=== PATIENT | male | born 1950 | race Two or more races ===

== ENCOUNTER 2021-03-22 10:02 | Inpatient (IN) | payer BC, OTHER ==
[~2021-03-22] VITALS: Ht 157.5 cm; Wt 63.0 kg
[~2021-03-22 10:02] MED LIST: AMLO-213 PO; ASPI-1169 PO; CARV6.252 PO; CLON0.1T PO; DICY10CA59 PO; DOCU-141 PO; FERR1TAB44 PO; FOLI0.8T2 PO; FURO80TA3 PO; GLIP2.5T3 PO; MECL-159 PO; NITR0.4T SL; SIMV-46 PO; SODI650T PO
--- NOTE | 2021-03-22 10:11 | NUR ---
TO ER BED 4, BIBRA 60 FROM HOME C/O GLF L WRIST PAIN AND POSSBILE SYNCOPAL EPISODE, FAMILY FOUND LEANING ON THE DOOR, BS 355 SHAREPOINT ARCHITECT, AAX3, BS 217 UPON ARRIVAL, CONNECTED TO MONITOR, PROVIDED WARM BLANKET, KEPT COMFORTABLE, AWAITING MD ORDERS
[2021-03-22] MEDS ORDERED: INSU100V SQ (10:15)
[2021-03-22] MEDS ORDERED: BRIM5DRO3 EACHEYE (10:15)
[2021-03-22] MEDS ORDERED: LISI-768 PO (10:15)
[2021-03-22] MEDS ORDERED: GLIP10TA21 PO (10:15)
[2021-03-22] MEDS ORDERED: MYCO250C8 PO (10:15)
[2021-03-22] MEDS ORDERED: ATOR10TA PO (10:15)
[2021-03-22] MEDS ORDERED: DONE5TAB34 PO (10:15)
[2021-03-22] MEDS ORDERED: METO25TA20 PO (10:15)
[2021-03-22] MEDS ORDERED: LINA5TAB PO (10:15)
[2021-03-22] MEDS ORDERED: CILO100T PO (10:15)
[2021-03-22] MEDS ORDERED: TACR0.5C4 PO (10:15)
[2021-03-22] MEDS ORDERED: INSU100V7 SQ (10:15)
--- NOTE | 2021-03-22 10:17 | NUR ---
PT UNABLE TO PROVIDE URINE AT THIS TIME, PT GIVEN URINAL AT BEDSIDE.
--- NOTE | 2021-03-22 10:20 | NUR ---
COVID SWAB DONE AND SENT TO LAB
--- NOTE | 2021-03-22 10:21 | NUR ---
UNABLE TO PROVIDE URINE AT THIS TIME
[2021-03-22] MEDS ORDERED: IV NS 0.9% 1,000 ML BAG IV ONE ×2 (10:30→12:00)
--- NOTE | 2021-03-22 10:32 | NUR ---
PT TAKEN TO CT VIA AMADEO
--- NOTE | 2021-03-22 10:32 | NUR ---
MOVE SHEET SUBMITTED AND CALLED FOR TELE BED.
[2021-03-22] MEDS ORDERED: DORZ10DR10 EACHEYE (10:42)
--- NOTE | 2021-03-22 10:42 | NUR ---
Magdalena araya in [facility] - 03/22/21 at 1042 by GALO BED GIVEN 114-1
[2021-03-22 11:07] LABS: BASOPHILS % (AUTO) 0.1 % (0.0-2.0); HEMATOCRIT 38 % (39-51); LYMPHOCYTES # (AUTO) 0.4 K/uL (0.8-4.8); MEAN CORPUSCULAR HGB CONC 32 g/dl (31.0-36.0); MEAN CORPUSCULAR VOLUME 85 fL (80-96); MONOCYTES # (AUTO) 1.2 K/uL (0.1-1.30); MONOCYTES % (AUTO) 7.3 % (2.0-12.0); NEUTROPHILS # (AUTO) 15.6 K/uL (1.8-8.9); NEUTROPHILS % (AUTO) 90.6 % (43.0-81.0); PLATELET COUNT (AUTO) 224 K/uL (150-450); RED BLOOD CELL COUNT(AUTO) 4.43 MIL/uL (4.5-6.0); WHITE BLOOD COUNT (AUTO) 17.2 K/uL (4.3-11.0)
[2021-03-22 11:28] LABS: CARBON DIOXIDE 17 mmol/L (21-32); CHLORIDE 103 mmol/L (98-107); CREATININE 1.2 mg/dL (0.6-1.3); GLUCOSE 239 mg/dL (74-106); POTASSIUM 4.1 mmol/L (3.5-5.1); SODIUM SERUM 136 mmol/L (136-145); UREA NITROGEN, BLOOD 27 mg/dL (7-18)
--- NOTE | 2021-03-22 11:41 | NUR ---
PT STILL UNABLE TO PROVIDE URINE AT THIS TIME
[2021-03-22 11:44] LABS: THYROID STIMULATING HORMONE 2.245 uIU/mL (0.358-3.74)
[2021-03-22] MEDS ORDERED: PIPERACILLIN /TAZOBACTAM 3.375 G in IV D5W 50 ML IV ONE (12:00)
[2021-03-22] MEDS ORDERED: Z GUARD REMEDY 4 OZ OINT TP PRN (12:30)
[2021-03-22] MEDS ORDERED: ONDANSETRON HCL/PF 4 MG/2 ML VIAL IVP PRN (12:30)
--- NOTE | 2021-03-22 12:49 | NUR ---
PT PROVIDED WITH WATER, STILL UNABLE TO PROVIDE URINE AT THIS TIME
[2021-03-22] MEDS ORDERED: DEXTROSE 50%-WATER 50 ML DISP.SYRIN IV PRN ×2 (13:00→15:30)
--- NOTE | 2021-03-22 13:04 | NUR ---
GOT BED 312-1
--- NOTE | 2021-03-22 13:35 | NUR ---
CALLED TO GIVE REPORT, NURSE IS ON BREAK
--- NOTE | 2021-03-22 13:48 | NUR ---
REPORT GIVEN TO SUSHILA
--- NOTE | 2021-03-22 14:59 | NUR ---
PT TRANSFERRED TO 3W WITH ACLS PROTOCOLS IN PLACE
--- NOTE | 2021-03-22 15:05 | NUR ---
DISTRICT HOME ECONOMICS AGENT ADMITTING NOTES RECIEVED PATIENT FORM E.R VIA AMADEO, ACCOMPANIED BY QUINTIN RIVERA. PATIENT IS AWAKE A&O X 3 WITH PERIODS OF FORGETFULNESS NOTED. VITAL SIGNS TAKEN AND RECORDED. IV ACCESS ON RAC G#18 PATENT AND FLUSHES WELL. HOOKED TO TELE MONITOR READING SHOWING ST HR AT 108. IN NO ACUTE DISTRESS NOTED. ON ROOM AIR TOLERATING WELL. NO S/SX OF RESPIRATORY DISTRESS NOTED. SKIN ISSUES IDENTIFIED. PHOTOS TAKEN AND FILED TO CHART. ORIENTED PATIENT TO THE UNIT AND STAFF, PATIENT NEEDS REINFORCEMENT DUE TO EPISODES OF FORGETFULNESS. SAFETY PRECAUTIONS IN PLACE: BED ON LOWEST LOCKED POSITION, SIDE RAILS UP X 2, CALL LIGHT WITHIN EASY REACH. WILL CONTINUE TO MONITOR ACCORDINGLY.
[2021-03-22 15:10] VITALS: BP 149/81
[2021-03-22 15:30] VITALS: BP 149/81
[2021-03-22] MEDS ORDERED: INSULIN REGULAR, HUMAN 100 UNIT/ML 3 ML VIAL SQ PRN (15:30)
[2021-03-22] MEDS ORDERED: *INSULIN REGULAR(HUMULIN R)HUM 100 UNIT/ML VIAL SQ PRN (15:30)
[2021-03-22] MEDS ORDERED: VANCOMYCIN 1.25 GM in IV D5W 250 ML IV ONE (16:00)
[2021-03-22] MEDS: MYCOPHENOLATE MOFETIL 250 MG CAPSULE PO SCH (16:58)
[2021-03-22] MEDS: TACROLIMUS ANHYDROUS 0.5 MG CAPSULE PO SCH (16:58)
[2021-03-22] MEDS: METOPROLOL TARTRATE 25 MG TABLET PO SCH (16:59)
[2021-03-22] MEDS: BLOOD SUGAR DIAGNOSTIC 1 EACH STRIP IN SCH ×2 (17:16→22:30)
[2021-03-22] MEDS: INSULIN LISPRO/ASPART 100 UNIT/ML CARTRIDGE SQ SCH ×2 (17:19→22:00)
[2021-03-22] MEDS: INSULIN REGULAR, HUMAN 100 UNIT/ML 3 ML VIAL SQ PRN (17:20)
[2021-03-22] MEDS ORDERED: BLOOD SUGAR DIAGNOSTIC 1 EACH STRIP IN SCH (17:30)
[2021-03-22] MEDS: DORZOLAMIDE OPTH 2% 10 ML BOTTLE EACHEYE SCH (17:59)
[2021-03-22] MEDS ORDERED: PIPERACILLIN /TAZOBACTAM 3.375 G in IV D5W 50 ML IV SCH (18:00)
[2021-03-22] MEDS: ACETAMINOPHEN 325 MG TABLET PO PRN (18:20)
--- NOTE | 2021-03-22 18:44 | NUR ---
RN NOTES ANSWERING TO BED ALARM, FOUND PATIENT ON HIS KNEES ON HIS BED SIDE ASSISTED BACK TO BAED, ASSESS PATIENT, NO INJURY NOTED. MD NOTIFIED. VITALS SIGNS WITHIN NORMAL LIMITS. REORIENTED PATIENT, REINFORCED TO CALL FOR ASSISTANCE WHEN NEEDED. WILL CONTINUE TO MONITOR.
--- NOTE | 2021-03-22 18:58 | NUR ---
SEQUINS SLINGER CLOSING NOTES PATIENT IN BED AWAKE A&O X 2 WITH PERIODS OF CONFUSION NOTED. IV ACCESS ON RFA G#20 PATENT AND FLUSHES WELL. ON TELE MONITOR READING SHOWING ST HR AT 118. IN NO ACUTE DISTRESS NOTED. ON ROOM AIR TOLERATING WELL. NO S/SX OF RESPIRATORY DISTRESS NOTED. SAFETY PRECAUTIONS IN PLACE: BED ON LOWEST LOCKED POSITION, SIDE RAILS UP X 2, CALL LIGHT WITHIN EASY REACH. ALL NEEDS ATTENDED AND MET, DUE MEDS GIVEN ORDERED. WILL ENDORSE TO ONCOMING SHIFT FOR RIVERA.
--- NOTE | 2021-03-22 19:45 | NUR ---
FUR GRADER NOTES SR-82 ON TELE MONITOR,ON BED A/O X2,CONFUSED,SALINE LOCK RIGHT AC INTACT AND PATENT,IV ABX INFUSING WELL VIA IV PUMP, NOTED RIGHT WEST SKIN TEAR AND RIGHT FOREARM,OPEN TO AIR.NEW SALINE LOCK PLACE ON LEFT FORE,WITH MULTIPLE IV ABX.FALL PRECAUTION OBSERVED,BED ON LOWEST POSITION AND LOCK,BED ALARM,CALL LIGHT IN REACH,NEEDS ANTICIPATED.
[2021-03-22 20:00] VITALS: BP 108/46
--- NOTE | 2021-03-22 21:00 | NUR ---
TRAY DELIVERY AIDE NOTES SEEN BY RAÚL DENNIS FOR ID CONSULT,VANCOMYCIN AND ZOSYN IV WAS CHANGED TO CEFEPIME AND VIBRAMYCIN IV.
[2021-03-22] MEDS: DONEPEZIL 5 MG TABLET PO SCH (21:43)
[2021-03-22] MEDS: HEPARIN SODIUM, PORCINE 5000 UNITS/1 ML VIAL SQ SCH (21:45)
[2021-03-22] MEDS: CILOSTAZOL 100 MG TABLET PO SCH (21:49)
[2021-03-22] MEDS: ATORVASTATIN 10 MG TABLET PO SCH (21:51)
[2021-03-22] MEDS: INSULIN GLARGINE, 100 UNIT/ML CARTRIDGE SQ SCH (22:00)
--- NOTE | 2021-03-22 22:00 | NUR ---
CLIENT RENEWAL SPECIALIST NOTES ACCU-CHECK BLOOD SUGAR CHECK 81,NO INSULIN COVERAGE,INSULIN LISPRO AND LANTUS 21 UNITS HELD FOR LOW BLOOD SUGAR LEVEL
[2021-03-22] MEDS ORDERED: DOXYCYCLINE 100 MG VIAL ONE (22:15)
[2021-03-22] MEDS: DOXYCYCLINE 100 MG in IV D5W 100 ML IV SCH (22:44)
[2021-03-23] VITALS: BP 139/61
[2021-03-23 00:52] LABS: ALANINE AMINOTRANSFERASE 71 U/L (12-78); ALBUMIN 2.3 g/dL (3.4-5.0); ALKALINE PHOSPHATASE 230 U/L (46-116); ASPARTATE AMINOTRANSFERASE 175 U/L (15-37); BILIRUBIN,DIRECT 0.4 mg/dL (0.0-0.2); BILIRUBIN,DIRECT 0.5 mg/dL (0.0-0.2); BILIRUBIN,TOTAL 0.8 mg/dL (0.2-1.0); TOTAL PROTEIN, SERUM 6.1 g/dL (6.4-8.2)
[2021-03-23 04:00] VITALS: BP 106/47
--- NOTE | 2021-03-23 05:15 | NUR ---
OB/GYN NOTES ACCU-CHECK BLOOD SUGAR CHECK 109,NO INSULIN COVERAGE.
[2021-03-23] MEDS: BLOOD SUGAR DIAGNOSTIC 1 EACH STRIP IN SCH ×4 (05:59→22:15)
--- NOTE | 2021-03-23 06:34 | NUR ---
LOG HOOKER NOTES ON BED A/O X-1-2,CONFUSED,REFUSED TO WEAR HOSPITAL GOWN,CALM AND QUIET ON BED THRU OUT SHIFT.WILL CONTINUE WITH PLAN OF CARE,NO DISTRESS.
[2021-03-23 07:16] LABS: BASOPHILS % (AUTO) 0.1 % (0.0-2.0); EOSINOPHILS % (AUTO) 0.1 % (0.0-6.0); HEMATOCRIT 38 % (39-51); HEMOGLOBIN 12.2 g/dL (13.5-17.5); LYMPHOCYTES # (AUTO) 0.4 K/uL (0.8-4.8); LYMPHOCYTES % (AUTO) 2.5 % (20.0-44.0); MEAN CORPUSCULAR HGB CONC 32 g/dl (31.0-36.0); MEAN CORPUSCULAR VOLUME 84 fL (80-96); MONOCYTES # (AUTO) 1.3 K/uL (0.1-1.30); MONOCYTES % (AUTO) 7.3 % (2.0-12.0); NEUTROPHILS # (AUTO) 15.7 K/uL (1.8-8.9); PLATELET COUNT (AUTO) 248 K/uL (150-450); WHITE BLOOD COUNT (AUTO) 17.4 K/uL (4.3-11.0)
[2021-03-23 07:36] LABS: CALCIUM, SERUM 8.6 mg/dL (8.5-10.1); CREATININE 0.8 mg/dL (0.6-1.3); MAGNESIUM 2.2 mg/dL (1.8-2.4); PHOSPHORUS 3.3 mg/dL (2.5-4.9)
[2021-03-23 07:51] LABS: THYROID STIMULATING HORMONE 0.769 uIU/mL (0.358-3.74)
[2021-03-23 08:00] VITALS: BP 111/50
[2021-03-23] MEDS: PANTOPRAZOLE 40 MG TABLET.DR PO SCH (08:32)
[2021-03-23] MEDS: DORZOLAMIDE OPTH 2% 10 ML BOTTLE EACHEYE SCH ×2 (08:35→17:46)
[2021-03-23] MEDS: BRIMONIDINE TARTRATE OPHT SOLN 5 ML BOTTLE OP SCH ×3 (08:35→17:46)
[2021-03-23] MEDS: LINAGLIPTIN 5 MG TABLET PO SCH (08:36)
[2021-03-23] MEDS: glipiZIDE XL 10 MG TAB.OSM.24 PO SCH (08:36)
[2021-03-23] MEDS: ASPIRIN 81 MG TAB.CHEW PO SCH (08:36)
[2021-03-23] MEDS: MYCOPHENOLATE MOFETIL 250 MG CAPSULE PO SCH ×2 (08:36→17:44)
[2021-03-23] MEDS: CILOSTAZOL 100 MG TABLET PO SCH ×2 (08:36→20:10)
[2021-03-23] MEDS: TACROLIMUS ANHYDROUS 0.5 MG CAPSULE PO SCH ×2 (08:37→17:45)
[2021-03-23] MEDS: HEPARIN SODIUM, PORCINE 5000 UNITS/1 ML VIAL SQ SCH (08:38)
[2021-03-23] MEDS: INSULIN LISPRO/ASPART 100 UNIT/ML CARTRIDGE SQ SCH ×4 (08:39→22:00)
[2021-03-23] MEDS: METOPROLOL TARTRATE 25 MG TABLET PO SCH ×2 (08:40→17:46)
[2021-03-23] MEDS: LISINOPRIL (5MG) 5 MG TABLET PO SCH (08:40)
[2021-03-23] MEDS: AMLODIPINE BESYLATE 10 MG TABLET PO SCH (08:40)
[2021-03-23] MEDS ORDERED: HEPARIN SODIUM, PORCINE 5000 UNITS/1 ML VIAL IV SCH (09:00)
[2021-03-23] MEDS: DOXYCYCLINE 100 MG in IV D5W 100 ML IV SCH ×2 (10:00→22:14)
[2021-03-23] MEDS: CEFEPIME 2 GM in IV D5W 100 ML IV SCH ×2 (10:01→20:10)
--- NOTE | 2021-03-23 11:44 | NUR ---
TELE/RN NOTES- NPO STATUS BS ID [id number] BUT WILL NOT GIVE INSULIN COVERAGE DUE TO NPO STATUS. WILL MONITOR.
[2021-03-23 12:00] VITALS: BP 100/50
[2021-03-23] MEDS: ACETAMINOPHEN 325 MG TABLET PO PRN ×3 (15:20→21:20)
[2021-03-23 16:00] VITALS: BP 126/67
[2021-03-23] MEDS ORDERED: VANCOMYCIN 1 GM in IV D5W 250 ML IV SCH (16:00)
[2021-03-23] MEDS ORDERED: IV NS 0.9% 250 ML IV ONE (16:21)
[2021-03-23] MEDS ORDERED: IOHEXOL-300 100 ML VIAL IV ONE (16:21)
[2021-03-23] MEDS: HEPARIN INFUSION/D5W 500 ML IV PRN (17:13)
--- NOTE | 2021-03-23 17:30 | NUR ---
HEPARIN DRIP STARTED HEPARIN DRIP STARTED AT 1100 UNITS/22ML/HR. WILL MONITOR.
--- NOTE | 2021-03-23 19:20 | NUR ---
TELE/RN OPENING NOTE PATIENT CURRENTLY RESTING IN BED. AWAKE, ALERT AND ORIENTED X 2. PRIMARILY ITALIAN SPEAKING. ABLE TO MAKE NEEDS KNOWN. DENIES PAIN AT THIS TIME. CONTINUES ON O2 3L VIA NC WITH NO S/SX OF RESPIRATORY DISTRESS NOTED. IV ACCESS TO RIGHT FOREARM #20G AND LEFT FOREARM #22G BOTH INTACT AND PATENT. CONTINUES ON IV HEPARIN AT 1100UNITS/HR. NO S/SX OF BLEEDING NOTED. CONTINUES ON NPO STATUS. CALL LIGHT WITHIN REACH. ASPIRATION, FALL AND SAFETY PRECAUTIONS MAINTAINED. WILL CONTINUE TO MONITOR.
[2021-03-23 20:00] VITALS: BP 121/71
--- NOTE | 2021-03-23 20:16 | NUR ---
TELE/RN NOTE SPOKE WITH RADIOLOGY REGARDING WHETHER PATIENT WOULD HAVE CT ABDOMEN DONE TONIGHT. PER RADIOLOGIST CT WITH CONTRAST OF ABDOMEN WILL BE DONE IN THE MORNING. PATIENT TO BE NPO AFTER MIDNIGHT. ADMINISTERED ROUTINE PO MEDS AT THIS TIME.
--- NOTE | 2021-03-23 20:45 | NUR ---
TELE/RN NOTE PATIENT DOWN TO RADIOLOGY FOR CT WITH CONTRAST OF ABDOMEN. CONTINUED ON HEPARIN DRIP WHILE AT RADIOLOGY.
--- NOTE | 2021-03-23 21:03 | NUR ---
TELE/RN NOTE PATIENT RETURNED FROM RADIOLOGY. RESTING COMFORTABLY IN BED.
[2021-03-23] MEDS: ATORVASTATIN 10 MG TABLET PO SCH (22:00)
[2021-03-23] MEDS: INSULIN GLARGINE, 100 UNIT/ML CARTRIDGE SQ SCH (22:00)
[2021-03-23] MEDS: DONEPEZIL 5 MG TABLET PO SCH (22:00)
[2021-03-24] VITALS: BP 132/65
--- NOTE | 2021-03-24 00:13 | NUR ---
TELE/RN NOTE PATIENTS PTT IS 80.5. HEPARIN DRIP ADJUSTED PER PROTOCOL. NEXT PTT LAB DRAW AT 0600.
[2021-03-24] MEDS: HEPARIN INFUSION/D5W 500 ML IV PRN ×2 (00:18→21:14)
[2021-03-24 04:00] VITALS: BP 131/69
--- NOTE | 2021-03-24 06:10 | NUR ---
TELE/RN CLOSING NOTE PATIENT CURRENTLY RESTING IN BED. AWAKE, ALERT AND ORIENTED X 2. PRIMARILY CHILEAN SPEAKING. ABLE TO MAKE NEEDS KNOWN. DENIES PAIN AT THIS TIME. CONTINUES ON O2 3L VIA NC WITH NO S/SX OF RESPIRATORY DISTRESS NOTED. IV ACCESS TO RIGHT FOREARM #20G AND LEFT FOREARM #22G BOTH INTACT AND PATENT. HEPARIN DRIP STOPPED AT 0700 FOR BIOPSY TODAY. NO S/SX OF BLEEDING NOTED. CONTINUES ON NPO STATUS. CALL LIGHT WITHIN REACH. ASPIRATION, FALL AND SAFETY PRECAUTIONS MAINTAINED. WILL ENDORSE PLAN OF CARE TO ONCOMING SHIFT.
[2021-03-24] MEDS: BLOOD SUGAR DIAGNOSTIC 1 EACH STRIP IN SCH ×4 (06:30→21:25)
[2021-03-24 06:48] LABS: BASOPHILS % (AUTO) 0.1 % (0.0-2.0); EOSINOPHILS % (AUTO) 0.2 % (0.0-6.0); HEMATOCRIT 36 % (39-51); HEMOGLOBIN 11.8 g/dL (13.5-17.5); LYMPHOCYTES # (AUTO) 0.8 K/uL (0.8-4.8); LYMPHOCYTES % (AUTO) 4.4 % (20.0-44.0); MEAN CORPUSCULAR HGB CONC 33 g/dl (31.0-36.0); MEAN CORPUSCULAR VOLUME 83 fL (80-96); MONOCYTES # (AUTO) 1.5 K/uL (0.1-1.30); MONOCYTES % (AUTO) 8.7 % (2.0-12.0); NEUTROPHILS # (AUTO) 15.2 K/uL (1.8-8.9); NEUTROPHILS % (AUTO) 86.6 % (43.0-81.0); PLATELET COUNT (AUTO) 295 K/uL (150-450); RED BLOOD CELL COUNT(AUTO) 4.34 MIL/uL (4.5-6.0); WHITE BLOOD COUNT (AUTO) 17.6 K/uL (4.3-11.0)
[2021-03-24 07:07] LABS: CALCIUM, SERUM 8.6 mg/dL (8.5-10.1); MAGNESIUM 2.1 mg/dL (1.8-2.4); PHOSPHORUS 3.3 mg/dL (2.5-4.9); POTASSIUM 3.5 mmol/L (3.5-5.1)
[2021-03-24 07:23] LABS: IRON, SERUM 33 ug/dl (50-175); TOTAL IRON BINDING CAPACITY 120 ug/dl (250-450)
[2021-03-24] MEDS: INSULIN LISPRO/ASPART 100 UNIT/ML CARTRIDGE SQ SCH ×4 (07:30→21:32)
[2021-03-24] MEDS: PANTOPRAZOLE 40 MG TABLET.DR PO SCH (07:30)
--- NOTE | 2021-03-24 07:30 | NUR ---
TELE/RN OPENING NOTE RECEIVED PATIENT CURRENTLY RESTING IN BED. AWAKE, ALERT AND ORIENTED X 2. PRIMARILY HUNGARIAN SPEAKING. ABLE TO MAKE NEEDS KNOWN. DENIES PAIN AT THIS TIME. CONTINUES ON O2 3L VIA NC WITH NO S/SX OF RESPIRATORY DISTRESS NOTED. IV ACCESS TO RIGHT FOREARM #20G AND LEFT FOREARM #22G BOTH INTACT AND PATENT. HEPARIN DRIP STOPPED AT 0700 FOR BIOPSY TODAY. NO S/SX OF BLEEDING NOTED. ON NPO STATUS. SAFETY MEASURES IN PLACED. CALL LIGHT WITHIN REACH. BED ON LOWEST LOCKED POSITION, SIDE RAILS UP X2. WILL CONTINUE TO MONITOR.
--- NOTE | 2021-03-24 07:30 | NUR ---
MS RN OPENING NOTES RECEIVED PATIENT ON SITTING ON CHAIR AWAKE AND A/O X4. ON ROOM AIR TOLERATING WELL. NO SOB NOTED. NOT IN DISTRESS. WITH NO COMPLAINTS OF PAIN OR DISCOMFORT AT THIS TIME. WITH NO IV ACCESS, PATIENT REFUSED FOR IV INSERTION. SAFETY MEASURES IN PLACED. CALL LIGHT WITHIN REACH. BED ON LOWEST LOCKED POSITION, SIDE RAILS UP X2. WILL CONTINUE TO MONITOR. Addendum: 03/24/21 at 1606 by BENJIE ZUNIGA RN DOCUMENTED ON WRONG PATIENT.
[2021-03-24 07:51] LABS: FERRITIN 1661 ng/mL (8-388); THYROID STIMULATING HORMONE 1.188 uIU/mL (0.358-3.74)
[2021-03-24 07:53] LABS: PROSTATE SPECIFIC ANTIGEN SCR < 0.13 ng/mL (0.00-4.00)
[2021-03-24 08:00] VITALS: BP 136/67
[2021-03-24] MEDS: LISINOPRIL (5MG) 5 MG TABLET PO SCH (09:00)
[2021-03-24] MEDS: ASPIRIN 81 MG TAB.CHEW PO SCH (09:00)
[2021-03-24] MEDS: AMLODIPINE BESYLATE 10 MG TABLET PO SCH (09:00)
[2021-03-24] MEDS: glipiZIDE XL 10 MG TAB.OSM.24 PO SCH (09:00)
[2021-03-24] MEDS: LINAGLIPTIN 5 MG TABLET PO SCH (09:00)
[2021-03-24] MEDS: TACROLIMUS ANHYDROUS 0.5 MG CAPSULE PO SCH ×2 (09:00→16:28)
[2021-03-24] MEDS: METOPROLOL TARTRATE 25 MG TABLET PO SCH ×2 (09:00→16:29)
[2021-03-24] MEDS: CILOSTAZOL 100 MG TABLET PO SCH ×2 (09:00→21:23)
[2021-03-24] MEDS: DOXYCYCLINE 100 MG in IV D5W 100 ML IV SCH ×2 (09:09→20:55)
[2021-03-24] MEDS: DORZOLAMIDE OPTH 2% 10 ML BOTTLE EACHEYE SCH ×2 (09:19→17:29)
[2021-03-24] MEDS: BRIMONIDINE TARTRATE OPHT SOLN 5 ML BOTTLE OP SCH ×3 (09:19→17:29)
[2021-03-24] MEDS: CEFEPIME 2 GM in IV D5W 100 ML IV SCH ×2 (11:38→20:03)
--- NOTE | 2021-03-24 15:00 | NUR ---
RN NOTES CALLED RADIOLOGY, SPOKE WITH JACOB TO ASK FOR HEPARIN DRIP PROTOCOL AND BEEN TOLD TO CALL HOSPITALIST IF HEPARIN DRIP WILL BE RESUMED.
--- NOTE | 2021-03-24 15:05 | NUR ---
MS RIVERAREVENUE INTEGRITY ANALYST NOTES PATIENT WAS SEEN BY DR. MARTINEZ AND ORDERED PATIENT FOR DISCHARGE TO HOME WITH HOME HEALTH. DISCHARGE INSTRUCTIONS AND EDUCATION PROVIDED TO THE PATIENT AND EXPLAINED MEDICATIONS AND PRESCRIPTIONS. PATIENT VERBALIZED UNDERSTANDING. DISCHARGE FORM AND BELONGINGS LIST FORM SIGNED BY PATIENT. PATIENT'S BELONGINGS ARE ACCOUNTED FOR. NAME WRIST BAND REMOVED. PATIENT REFUSED TO TAKE PHOTOS FOR SKIN ISSUES. ACCOMPANIED PATIENT TO THE [facility] WITH SON AMBULATORY AND LEFT IN STABLE CONDITION VIA PRIVATE CAR. MD AND CHARGE NURSE ARE AWARE OF THE DISCHARGE. Addendum: 03/24/21 at 1607 by BENJIE ZUNIGA RN DOCUMENTED ON WRONG PATIENT.
[2021-03-24 16:00] VITALS: BP 136/67
[2021-03-24] MEDS: DICYCLOMINE HCL 10 MG CAPSULE PO PRN (16:25)
--- NOTE | 2021-03-24 17:00 | NUR ---
RN NOTES TEXTED DR. ALMAGUER IF HEPARIN DRIP BE RESUMED BUT RECEIVED NO ANSWER.
[2021-03-24] MEDS: INSULIN REGULAR, HUMAN 100 UNIT/ML 3 ML VIAL SQ PRN (17:22)
--- NOTE | 2021-03-24 18:00 | NUR ---
RN NOTES CALLED [facility] NUMBER TO SPEAK WITH DR. ALMAGUER AND THEY RESPONDED THAT HE'S NOT ONCALL AND BE FORWARDED TO [facility]. TEXTED [facility] AND RESPONDED SHE DOESNT KNOW THE PATIENT AND SHE CANT ANSWER FOR THE QUESTION.
--- NOTE | 2021-03-24 18:10 | NUR ---
RN NOTES DR. ALMAGUER CALLED AND RESPONDED TO RESUME HEPARIN DRIP 8HRS AFTER LIVER BIOPSY.
--- NOTE | 2021-03-24 18:59 | NUR ---
TELE/RN CLOSING NOTES PATIENT ON BED AWAKE AND A/O X2. ABLE TO MAKE NEEDS KNOWN. DENIES PAIN AT THIS TIME. CONTINUES ON O2 3L VIA NC WITH NO S/SX OF RESPIRATORY DISTRESS NOTED. IV ACCESS TO RIGHT FOREARM #20G AND LEFT FOREARM #22G BOTH INTACT AND PATENT. ON TELE MONITOR CURRENTLY READING SINUS TACHYCARDIA AT 117BPM WITH 1ST DEGREE AV BLOCK. S/P LIVER BIOPSY AT 1300. PER DR. ALMAGUER TO RESUME HEPARIN DRIP 8HRS AFTER LIVER BIOPSY. PATIENT IS FOR PTT, PT WITH INR AT 2000 AND TO RESUME HEPARIN DRIP AT 2100. NO S/SX OF BLEEDING NOTED. SAFETY MEASURES IN PLACED. CALL LIGHT WITHIN REACH. BED ON LOWEST LOCKED POSITION, SIDE RAILS UP X2. WILL ENDORSE TO NEXT SHIFT FOR RIVERA.
--- NOTE | 2021-03-24 19:56 | NUR ---
Patient attempting to get out of bed and removing oxygen. Is confused when attempting to redirect. Already talked to patient about blood clots in leg and to not get up and walk. Per AM nurse he has been confused and actually fell a couple days ago. heparin drip to be restarted at 2100. Patient is at risk to hurt himself. Contacted design studio consultant provider -new order for mahad. soft wrist restraints.
[2021-03-24 20:00] VITALS: BP 119/58
--- NOTE | 2021-03-24 20:00 | NUR ---
Patient is A&O to person and place, but does not understand the situation or significance of treatment. Patient also continues to ask "can i go home now?" forgetting what has been explained to him. Will continue to reorient patient and q15min checks for safety as well as release of restraint q2h for ROM and skin check and toileting, water offered. To resume heparin drip at 2100. Will monitor pt. closely.
[2021-03-24] MEDS: DONEPEZIL 5 MG TABLET PO SCH (21:23)
[2021-03-24] MEDS: ATORVASTATIN 10 MG TABLET PO SCH (21:23)
[2021-03-24] MEDS: INSULIN GLARGINE, 100 UNIT/ML CARTRIDGE SQ SCH (21:28)
--- NOTE | 2021-03-24 21:33 | NUR ---
Pt. only had 1 meal today d/t procedure earlier, and does not want a snack. 7 units Humalog held, BS 129. Lantus 21 units given however long-acting
[2021-03-25] VITALS (7 sets, daily range): BP systolic 86–126; BP diastolic 31–80
[2021-03-25] MEDS: ACETAMINOPHEN 325 MG TABLET PO PRN ×2 (01:06→10:12)
--- NOTE | 2021-03-25 01:11 | NUR ---
PRN tylenol given for lower back pain 04/23
--- NOTE | 2021-03-25 03:00 | NUR ---
Back pain unrelieved -pt still restless and HR increases at times. Contacted manager acquisition provider. New order for Morphine 2mg IV PRN Q4H for severe pain.
[2021-03-25] MEDS: MORPHINE SULFATE INJ 2 MG/ML DISP.SYRIN IV PRN ×4 (03:08→23:43)
--- NOTE | 2021-03-25 03:31 | NUR ---
Substation Designer at bedside drawing PTT Addendum: 03/25/21 at 0331 by TYLER SORIANO RN [id number]
[2021-03-25 04:03] LABS: BASOPHILS % (AUTO) 0.1 % (0.0-2.0); HEMATOCRIT 31 % (39-51); LYMPHOCYTES # (AUTO) 0.5 K/uL (0.8-4.8); LYMPHOCYTES % (AUTO) 3.3 % (20.0-44.0); MEAN CORPUSCULAR HGB CONC 33 g/dl (31.0-36.0); MEAN CORPUSCULAR VOLUME 83 fL (80-96); MONOCYTES # (AUTO) 1.5 K/uL (0.1-1.30); MONOCYTES % (AUTO) 9.7 % (2.0-12.0); NEUTROPHILS # (AUTO) 13.6 K/uL (1.8-8.9); NEUTROPHILS % (AUTO) 86.9 % (43.0-81.0); PLATELET COUNT (AUTO) 266 K/uL (150-450); RED BLOOD CELL COUNT(AUTO) 3.73 MIL/uL (4.5-6.0); WHITE BLOOD COUNT (AUTO) 15.6 K/uL (4.3-11.0)
[2021-03-25 04:12] LABS: CALCIUM, SERUM 8.5 mg/dL (8.5-10.1); CREATININE 1.1 mg/dL (0.6-1.3); MAGNESIUM 2.1 mg/dL (1.8-2.4); PHOSPHORUS 2.5 mg/dL (2.5-4.9); POTASSIUM 3.3 mmol/L (3.5-5.1)
--- NOTE | 2021-03-25 04:21 | NUR ---
PTT still pending
--- NOTE | 2021-03-25 05:31 | NUR ---
Patient had minimally labored breathing along with grunting O2 sat on 3L was 90-91%. Turned O2 to 5L O2 sat now 95-96%, patient now appears more comfortable.
--- NOTE | 2021-03-25 06:02 | NUR ---
RN CLOSING NOTES Patient currently in bed resting comfortably. No signs of distress. Denies needs at this time. Q15min check for safety and skin/circulation WNL. Restraints released q2h and needs assessed. Heparin drip currently infusing at 1000 unit/hr which is 20mL/hr Iv site to RFA intact and patent with no signs of leakage or phlebitis. Overnight patient was SR/ST on the monitor usually 90s-100s but had an episode of pain and anxiety where HR went up to 130 but resolved quickly. Tolerated IV ABX well, no adverse reactions.
[2021-03-25] MEDS: BLOOD SUGAR DIAGNOSTIC 1 EACH STRIP IN SCH ×4 (06:46→22:20)
[2021-03-25] MEDS: INSULIN REGULAR, HUMAN 100 UNIT/ML 3 ML VIAL SQ PRN ×2 (06:48→11:47)
--- NOTE | 2021-03-25 07:30 | NUR ---
STRAIGHTENING MACHINE FEEDER NOTES PT IN BED, RESTING, ALERT AND VERBALLY RESPONSIVE, WITH PERIODS OF CONFUSION, CALL LIGHT WITHIN REACH, KEPT WARM AND COMFORTABLE IN BED.
[2021-03-25] MEDS: METOPROLOL TARTRATE 25 MG TABLET PO SCH ×2 (09:00→16:43)
[2021-03-25] MEDS: LISINOPRIL (5MG) 5 MG TABLET PO SCH (09:00)
[2021-03-25] MEDS: AMLODIPINE BESYLATE 10 MG TABLET PO SCH (09:00)
[2021-03-25 09:07] LABS: CARBOHYDRATE AG 19-9 <2 U/mL (0-35); IMMUNOGLOBULIN A, SERUM 380 mg/dL (61-437); IMMUNOGLOBULIN A, SERUM 383 mg/dL (61-437); IMMUNOGLOBULIN G, SERUM 877 mg/dL (603-1613); IMMUNOGLOBULIN G, SERUM 922 mg/dL (603-1613); IMMUNOGLOBULIN M, SERUM 71 mg/dL (20-172); IMMUNOGLOBULIN M, SERUM 75 mg/dL (20-172)
[2021-03-25] MEDS ORDERED: POTASSIUM CHLORIDE 20 MEQ TAB.PRT.SR PO SCH (10:00)
[2021-03-25] MEDS: CEFEPIME 2 GM in IV D5W 100 ML IV SCH ×2 (10:06→22:10)
[2021-03-25] MEDS: TACROLIMUS ANHYDROUS 0.5 MG CAPSULE PO SCH ×2 (10:12→16:40)
[2021-03-25] MEDS: ASPIRIN 81 MG TAB.CHEW PO SCH (10:12)
[2021-03-25] MEDS: PANTOPRAZOLE 40 MG TABLET.DR PO SCH (10:12)
[2021-03-25] MEDS: glipiZIDE XL 10 MG TAB.OSM.24 PO SCH (10:12)
[2021-03-25] MEDS: INSULIN LISPRO/ASPART 100 UNIT/ML CARTRIDGE SQ SCH ×4 (10:12→22:27)
[2021-03-25] MEDS: BRIMONIDINE TARTRATE OPHT SOLN 5 ML BOTTLE OP SCH ×3 (10:13→16:43)
[2021-03-25] MEDS: CILOSTAZOL 100 MG TABLET PO SCH ×2 (10:13→21:26)
[2021-03-25] MEDS: DORZOLAMIDE OPTH 2% 10 ML BOTTLE EACHEYE SCH ×2 (10:13→16:43)
[2021-03-25] MEDS: LINAGLIPTIN 5 MG TABLET PO SCH ×2 (10:22→10:27)
[2021-03-25 11:07] LABS: *SPE A/G RATIO 0.7 (0.7-1.7); *SPE ALPHA-1-GLOBULIN 0.5 g/dL (0.0-0.4); *SPE ALPHA-2-GLOBULIN 0.9 g/dL (0.4-1.0); *SPE BETA GLOBULIN 0.8 g/dL (0.7-1.3); *SPE M-SPIKE Not Observed g/dL (Not Observed)
[2021-03-25] MEDS: DOXYCYCLINE 100 MG in IV D5W 100 ML IV SCH ×2 (11:23→22:47)
[2021-03-25] MEDS: APIXABAN 2.5 MG TABLET PO SCH ×2 (13:23→16:42)
[2021-03-25] MEDS: GLUCERNA SHAKE 237 ML CAN PO SCH ×2 (14:38→16:42)
--- NOTE | 2021-03-25 18:33 | NUR ---
MEMBER SERVICE REPRESENTATIVE NOTES PT IN BED, RESTING, PAIN MEDS GIVEN FOR GENERALIZED BODY PAIN, CALL LIGHT WITHIN REACH, DUE MEDS GIVEN ORDERED, BS CHECKED, NO S/S OF HYPO/HYPERGLYCEMIA NOTED, PM CARE PROVIDED, ALL NEEDS ATTENDED.
--- NOTE | 2021-03-25 20:07 | NUR ---
CONTINUITY OF CARE Patient restless, Alert Oriented to self and place. Bilateral soft wrist restraints released and reapplied, no skin injury, BUE CSM intact. SWAPNA midline intact. BP in the low 80's patient no c/o dizziness. Fall precaution maintained. Bed alarm on and audible. Will cont to provide care.
[2021-03-25] MEDS ORDERED: MIDODRINE HCL (5MG) 5 MG TABLET PO ONE (20:30)
[2021-03-25] MEDS ORDERED: IV NS 0.9% 1,000 ML IV ONE (20:30)
[2021-03-25] MEDS: ATORVASTATIN 10 MG TABLET PO SCH (21:26)
[2021-03-25] MEDS: DONEPEZIL 5 MG TABLET PO SCH (21:26)
[2021-03-25] MEDS: INSULIN GLARGINE, 100 UNIT/ML CARTRIDGE SQ SCH (22:37)
[2021-03-26] VITALS (36 sets, daily range): BP systolic 58–154; BP diastolic 29–95
[2021-03-26] MEDS: DICYCLOMINE HCL 10 MG CAPSULE PO PRN (01:52)
[2021-03-26] MEDS: MORPHINE SULFATE INJ 2 MG/ML DISP.SYRIN IV PRN ×3 (03:34→23:38)
[2021-03-26 05:07] LABS: CMV, IgG >10.00 U/mL (0.00-0.59); CMV, IgM <30.0 AU/mL (0.0-29.9)
[2021-03-26] MEDS: BLOOD SUGAR DIAGNOSTIC 1 EACH STRIP IN SCH ×5 (05:37→23:48)
[2021-03-26] MEDS: INSULIN REGULAR, HUMAN 100 UNIT/ML 3 ML VIAL SQ PRN ×3 (05:38→23:48)
--- NOTE | 2021-03-26 05:51 | NUR ---
END OF SHIFT REPORT Patient in bed, A/O x2 to self and place. BLACK midline intact. On IV abx. Afebrile. Given bolus NS 1L and Midodrine 10mg x1, BP improved recheck 132/95. Persistent abdomen pain, no N/V. Given Morphine with some relief, patient with continuous pain, moans and appearing uncomfortably crying with pain. Bentyl given and another dose of Morphine at due time, pain improved. Bilateral soft wrist restraints in place, patient still attempting to pull out lines during trial removed. Liver biopsy pending result. Fall precaution maintained. Will endorse to oncoming RN.
[2021-03-26 06:48] LABS: BASOPHILS % (AUTO) 0.1 % (0.0-2.0); EOSINOPHILS % (AUTO) 0.4 % (0.0-6.0); HEMATOCRIT 33 % (39-51); HEMOGLOBIN 10.7 g/dL (13.5-17.5); LYMPHOCYTES # (AUTO) 0.4 K/uL (0.8-4.8); LYMPHOCYTES % (AUTO) 2.8 % (20.0-44.0); MEAN CORPUSCULAR HGB CONC 32 g/dl (31.0-36.0); MEAN CORPUSCULAR VOLUME 84 fL (80-96); MONOCYTES # (AUTO) 1.2 K/uL (0.1-1.30); MONOCYTES % (AUTO) 7.5 % (2.0-12.0); NEUTROPHILS # (AUTO) 13.9 K/uL (1.8-8.9); NEUTROPHILS % (AUTO) 89.2 % (43.0-81.0); PLATELET COUNT (AUTO) 276 K/uL (150-450); RED BLOOD CELL COUNT(AUTO) 3.94 MIL/uL (4.5-6.0); WHITE BLOOD COUNT (AUTO) 15.5 K/uL (4.3-11.0)
--- NOTE | 2021-03-26 07:22 | NUR ---
SAFETY ASSISTANT OPENING NOTE RECEIVED PATIENT ON BED AWAKE AND A/O X1-2. DENIES PAIN AT THIS TIME. CONTINUES ON O2 3L VIA NC SATURATING AT 97% WITH NO S/SX OF RESPIRATORY DISTRESS NOTED. WITH MIDLINE ACCESS ON THE RIGHT UPPER ARM. ON TELE MONITOR CURRENTLY READING SINUS TACHYCARDIA AT 115 BPM. PATIENT WITH BILATERAL WRIST RESTRAINTS WITH GOOD CIRCULATION ON BOTH HANDS. SAFETY MEASURES IN PLACED. CALL LIGHT WITHIN REACH. BED ON LOWEST LOCKED POSITION, SIDE RAILS UP X2. WILL CONTINUE TO MONITOR PATIENT.
[2021-03-26 07:26] LABS: CALCIUM, SERUM 8.3 mg/dL (8.5-10.1); CREATININE 1.2 mg/dL (0.6-1.3); PHOSPHORUS 2.6 mg/dL (2.5-4.9); POTASSIUM 3.8 mmol/L (3.5-5.1)
[2021-03-26] MEDS: GLUCERNA SHAKE 237 ML CAN PO SCH ×2 (08:00→17:00)
[2021-03-26] MEDS: ASPIRIN 81 MG TAB.CHEW PO SCH (09:05)
[2021-03-26] MEDS: glipiZIDE XL 10 MG TAB.OSM.24 PO SCH (09:05)
[2021-03-26] MEDS: CILOSTAZOL 100 MG TABLET PO SCH ×2 (09:05→21:00)
[2021-03-26] MEDS: TACROLIMUS ANHYDROUS 0.5 MG CAPSULE PO SCH ×2 (09:05→17:00)
[2021-03-26] MEDS: METOPROLOL TARTRATE 25 MG TABLET PO SCH ×2 (09:06→17:00)
[2021-03-26] MEDS: LINAGLIPTIN 5 MG TABLET PO SCH (09:06)
[2021-03-26] MEDS: LISINOPRIL (5MG) 5 MG TABLET PO SCH (09:07)
[2021-03-26] MEDS: AMLODIPINE BESYLATE 10 MG TABLET PO SCH (09:07)
[2021-03-26] MEDS: APIXABAN 2.5 MG TABLET PO SCH (09:19)
[2021-03-26] MEDS: PANTOPRAZOLE 40 MG TABLET.DR PO SCH (09:25)
[2021-03-26] MEDS: CEFEPIME 2 GM in IV D5W 100 ML IV SCH ×2 (09:26→22:00)
[2021-03-26] MEDS: DOXYCYCLINE 100 MG in IV D5W 100 ML IV SCH (09:26)
--- NOTE | 2021-03-26 09:30 | NUR ---
EVAPORATOR OPERATOR MOLASSES NOTE PATIENT SEEN BY SONNY ACUNA. WILL CONTINUE TO MONITOR PATIENT.
[2021-03-26] MEDS ORDERED: IV NS 0.9% 1,000 ML IV ONE (10:00)
--- NOTE | 2021-03-26 10:15 | NUR ---
SECURITY AND COMPLIANCE PROJECT MANAGER NOTE PATIENT SEEN BY DR. HUGHES WITH ORDER TO GIVE NS BOLUS. VERIFIED ORDER WITH MD. PATIENT WITH CLEAR BREATH SOUND WITH OXYGEN SATURATION OF 96% WITH OXYGEN AT 3LPM. WILL CONTINUE TO MONITOR PATIENT.
[2021-03-26] MEDS: INSULIN LISPRO/ASPART 100 UNIT/ML CARTRIDGE SQ SCH ×3 (11:20→17:30)
[2021-03-26] MEDS: DORZOLAMIDE OPTH 2% 10 ML BOTTLE EACHEYE SCH ×2 (11:20→17:00)
[2021-03-26] MEDS: BRIMONIDINE TARTRATE OPHT SOLN 5 ML BOTTLE OP SCH ×3 (11:21→17:00)
[2021-03-26] MEDS ORDERED: APIX2.5T PO (12:18)
[2021-03-26] MEDS ORDERED: ALBUTEROL FS 2.5 MG/0.5 ML VIAL.NEB NEB PRN (14:00)
--- NOTE | 2021-03-26 14:06 | NUR ---
PT ARRIVED IN ICU FROM 3W FROM CASCADE OPERATOR CALL. DR. SHAH AWARE, AWAITING DECISION IF PATIENT GETS INTUBATED OR WILL BE ON BIPAP.
--- NOTE | 2021-03-26 14:15 | NUR ---
TRANSFER FROM [facility] TO RESP. DISTRESS, DESATURATION 78% ON 100% NRBM. PATIENT TACHYPNEIC UPON TRANSFER, DIAPHORETIC BUT REMAINS AROUSABLE TO VERBAL. OPENS EYES, MOANS, BUT DOESN'T FOLLOW SIMPLE COMMANDS. SR 90'S ON MONITOR. SBP>90. ABG RESULTS REPORTED TO DR. SHAH WITH ORDERS RECEIVED FOR RESCUE BIPAP- 20/5 RATE 18. ABG POST 2HRS.
--- NOTE | 2021-03-26 14:20 | NUR ---
ENTER[employer]ISE SOLUTIONS ARCHITECT NOTE PATIENT NOTED AROUND 1340, RESTLESS BUT VERBALLY RESPONSIVE TO QUESTIONS. PATIENT OXYGEN SATURATION CHECKED AND NOTED IT AT 51%. PATIENT WITH OXYGEN AT 3LPM VIA NC. OXYGEN CHANGED TO 15LPM VIA NON REBREATHER MASK. ALSO NOTED SOME WHEEZING. PATIENT'S OXYGEN SATURATION INCREASED TO 97-98% BUT STILL NOTED WHEEZING AND PATIENT STILL RESTLESS. DR. ACUNA NOTIFIED AND ORDERED TO ADMINISTER ALBUTEROL NEBULIZATION. RT NOTIFIED AT AROUND 1352, WHEN RT WAS STARTING THE BREATHING TREATMENT. PATIENT WAS UNRESPONSIVE, DID STERNAL RUB ON THE PATIENT, BUT PATIENT WAS NOT RESPONDING. VS CHECKED, AND NOTED FOLLOWS 112/64, 112, BS 265, OXYGEN SATURATION OF 86%. RAPID RESPONSE CALLED AND PATIENT ASSESSMENT DONE. PATIENT PLACED ON MONITOR, MAINTAINED OXYGEN AT 15LPM NRB MASK. ABG'S DONE. PATIENT STARTED RESPONDING TO PAIN BUT VERY DIAPHORETIC. PATIENT TRANSFERRED TO ICU VIA BED ACCOMPANINED BY 3 NURSES. PATIENT ENDORSED ACCORDINGLY.
--- NOTE | 2021-03-26 14:41 | NUR ---
PT PLACED ON BIPAP PER MD ORDERS AT A RATE 18; 03/07 AT 100%. NT SX WAS DONE. MODERATE THIN CLEAR SECRETIONS. PT SP02 AT 97%. Addendum: 03/26/21 at 1444 by CHANTAL POZO RT Amended: Links added.
[2021-03-26] MEDS ORDERED: SODIUM BICARBONATE SYR 50 MEQ/50 ML DISP.SYRIN IV ONE (15:30)
[2021-03-26] MEDS ORDERED: NOREPINEPHRINE 32 MG in IV NS 0.9% 218 ML IV PRN (15:30)
[2021-03-26] MEDS: IV NS 0.9% 250 ML IV PRN (16:09)
[2021-03-26] MEDS: HYDROCORTISONE SOD SUCCINATE 100 MG/2 ML VIAL IV SCH ×2 (16:11→22:08)
[2021-03-26] MEDS ORDERED: VANCOMYCIN 1 GM in IV D5W 250 ML IV ONE (17:00)
[2021-03-26] MEDS: Sodium Bicarbonate 100 MEQ in IV D5W 1,000 ML IV PRN (17:45)
[2021-03-26] MEDS ORDERED: DEXTROSE 50%-WATER 50 ML DISP.SYRIN IV PRN (18:00)
[2021-03-26 18:36] LABS: ABG BASE EXCESS -13.6 mmol/L; ABG OXYGEN SATURATION 79.6 % (92.0-98.5); ABG PCO2 44.6 mmHg (35.0-45.0); ABG PH 7.142 (7.350-7.450); ABG PO2 55.1 mmHg (75.0-100.0); AaDO2 613.3 mmHg; COHb 0.1 % (0.5-1.5); MetHb 0.4 % (0.0-1.5); O2Hb 79.2 % (94.0-97.0); SITE, ABG Right Radial; VENT MODE, BG NON REBREATHER MASK
[2021-03-26 18:36] LABS: ABG BASE EXCESS -5.5 mmol/L; ABG OXYGEN SATURATION 97.1 % (92.0-98.5); ABG PCO2 29.7 mmHg (35.0-45.0); ABG PH 7.405 (7.350-7.450); ABG PO2 96.4 mmHg (75.0-100.0); AaDO2 586.9 mmHg; COHb 0.3 % (0.5-1.5); MetHb 0.3 % (0.0-1.5); O2Hb 96.5 % (94.0-97.0); SITE, ABG Right Radial; VENT MODE, BG ST 20/5 18 100%
[2021-03-26] MEDS: DONEPEZIL 5 MG TABLET PO SCH (22:00)
[2021-03-26] MEDS: ATORVASTATIN 10 MG TABLET PO SCH (22:00)
[2021-03-26] MEDS: ENOXAPARIN SODIUM 60 MG/0.6 ML DISP.SYRIN SQ SCH (22:09)
[2021-03-26] MEDS: INSULIN GLARGINE, 100 UNIT/ML CARTRIDGE SQ SCH (23:48)
[2021-03-27] VITALS (72 sets, daily range): BP systolic 72–155; BP diastolic 22–99
[2021-03-27] MEDS: Sodium Bicarbonate 100 MEQ in IV D5W 1,000 ML IV PRN (01:41)
[2021-03-27] MEDS: HYDROCORTISONE SOD SUCCINATE 100 MG/2 ML VIAL IV SCH ×3 (04:01→21:04)
[2021-03-27] MEDS: MORPHINE SULFATE INJ 2 MG/ML DISP.SYRIN IV PRN ×3 (04:02→17:58)
[2021-03-27 04:29] LABS: HEMATOCRIT 34 % (39-51); HEMOGLOBIN 11.1 g/dL (13.5-17.5); LYMPHOCYTES # (AUTO) 0.9 K/uL (0.8-4.8); LYMPHOCYTES % (AUTO) 3.7 % (20.0-44.0); MEAN CORPUSCULAR HGB CONC 32 g/dl (31.0-36.0); MEAN CORPUSCULAR VOLUME 83 fL (80-96); MONOCYTES # (AUTO) 1.4 K/uL (0.1-1.30); MONOCYTES % (AUTO) 6.1 % (2.0-12.0); NEUTROPHILS % (AUTO) 90.2 % (43.0-81.0); PLATELET COUNT (AUTO) 427 K/uL (150-450); WHITE BLOOD COUNT (AUTO) 23.3 K/uL (4.3-11.0)
[2021-03-27 04:45] LABS: CALCIUM, SERUM 8.4 mg/dL (8.5-10.1); CREATININE 1.7 mg/dL (0.6-1.3); MAGNESIUM 2.1 mg/dL (1.8-2.4); PHOSPHORUS 2.8 mg/dL (2.5-4.9); POTASSIUM 3.6 mmol/L (3.5-5.1)
[2021-03-27] MEDS ORDERED: VANCOMYCIN 0.75 GM in IV D5W 250 ML IV SCH (05:00)
[2021-03-27] MEDS: BLOOD SUGAR DIAGNOSTIC 1 EACH STRIP IN SCH ×4 (05:42→23:49)
[2021-03-27] MEDS: INSULIN REGULAR, HUMAN 100 UNIT/ML 3 ML VIAL SQ PRN ×2 (05:44→23:54)
--- NOTE | 2021-03-27 07:00 | NUR ---
RN NOTES RECEIVED PT ON BIPAP, ALERT, FOLLOWS SIMPLE COMMAND, O2 SAT WNL, PT ON BICARB DRIP AT 125CC/HR , LEVO AT .02 MCG/KG/MIN RUNNING FOR BP SUPPORT , ON TELE SR HR IN 90'S , R UPPER ARM PICC LINE SITE CLEAN ,DRY AND INTACT, SR UP x3, CALL LIGHT WITHIN EASY REACH, BED LOCKED AND IN LOWEST POSITION, CONTINUE TO MONITOR. Addendum: 03/27/21 at 0833 by SPIKE GOMEZ RN CORRECTION ON TELE A.FIB , HR IN 100'S
[2021-03-27] MEDS: GLUCERNA SHAKE 237 ML CAN PO SCH ×2 (08:00→16:24)
[2021-03-27] MEDS: CILOSTAZOL 100 MG TABLET PO SCH ×2 (08:35→21:00)
[2021-03-27] MEDS: PANTOPRAZOLE 40 MG TABLET.DR PO SCH (08:35)
[2021-03-27] MEDS: METOPROLOL TARTRATE 25 MG TABLET PO SCH ×2 (08:36→16:24)
[2021-03-27] MEDS: glipiZIDE XL 10 MG TAB.OSM.24 PO SCH (08:36)
[2021-03-27] MEDS: AMLODIPINE BESYLATE 10 MG TABLET PO SCH (08:36)
[2021-03-27] MEDS: LISINOPRIL (5MG) 5 MG TABLET PO SCH (08:37)
[2021-03-27] MEDS: TACROLIMUS ANHYDROUS 0.5 MG CAPSULE PO SCH ×2 (08:37→16:25)
[2021-03-27] MEDS: ASPIRIN 81 MG TAB.CHEW PO SCH (08:37)
[2021-03-27] MEDS: DORZOLAMIDE OPTH 2% 10 ML BOTTLE EACHEYE SCH ×2 (08:44→16:25)
[2021-03-27] MEDS: BRIMONIDINE TARTRATE OPHT SOLN 5 ML BOTTLE OP SCH ×3 (08:44→16:25)
[2021-03-27] MEDS: CEFEPIME 2 GM in IV D5W 100 ML IV SCH (08:45)
[2021-03-27] MEDS: ENOXAPARIN SODIUM 60 MG/0.6 ML DISP.SYRIN SQ SCH (08:47)
[2021-03-27 10:16] LABS: LYMPHOCYTES % (MANUAL) 2 % (16-48); MONOCYTES % (MANUAL) 6 % (0-11.0); NEUTROPHILS % (MANUAL) 92 (42-76)
[2021-03-27] MEDS: Sodium Bicarbonate 100 MEQ in IV D5W 1,000 ML IV SCH ×2 (10:30→19:46)
--- NOTE | 2021-03-27 12:00 | NUR ---
RN NOTES SISTER TERESA AT THE BEDSIDE, A COPY OF ADVANCE DIRECTIVE OBTAINED FROM PT'S SISTER AND PLACED ON THE CHART . DNR AND DNI ORDER RECEIVED FROM DR SHAH.
[2021-03-27] MEDS: MEROPENEM 500 MG in IV NS 0.9% 50 ML IV SCH (13:29)
[2021-03-27] MEDS: MICAFUNGIN SODIUM 100 MG in IV NS 0.9% 100 ML IV SCH (14:27)
[2021-03-27] MEDS ORDERED: NOREPINEPHRINE 8 MG in IV NS 0.9% 242 ML IV PRN (15:00)
--- NOTE | 2021-03-27 18:00 | NUR ---
RN NOTES PT REMAINS ON BIPAP, LETHARGIC / CONFUSED, PULLING ON HIS BIPAP , DEANNA. WRIST RESTRAINS ON FOR PT SAFETY, O2 SAT IN LOWE 90S' ON TELE AFIB HR IN 100'S , NAVARRETE INSERTED PER LILIANA ID ORDER . SR UP x3, CALL LIGHT WITHIN EASY REACH, WILL ENDORSE TO TRUCK BODY BUILDER NURSE FOR CONTINUITY OF CARE
--- NOTE | 2021-03-27 19:10 | NUR ---
RN NOTES RECEIVED PT ON BIPAP, ALERT, FOLLOWS SIMPLE COMMAND, PT ON BICARB DRIP @ 125 ML/HR. ON TELE SR HR IN 90'S , R UPPER ARM PICC LINE SITE CLEAN ,DRY AND INTACT. WITH NAVARRETE CATHETER CONNECTED TO URINE BAG PATENT. WITH BILATERAL SOFT RESTRAINTS IN PLACE PATIENT IS AGITATED TRYING TO REMOVE HIS LIFE SUSTAINING DEVICE. SR UP x3, ALL SAFETY MEASURES IN PLACE AT ALL TIMES CALL LIGHT WITHIN EASY REACH, BED LOCKED AND IN LOWEST POSITION, CONTINUE TO MONITOR.
--- NOTE | 2021-03-27 21:10 | NUR ---
RN NOTES ALL P.O MEDS HELD DUE TO HIGH RISK OF ASPIRATION. DR AHN MADE AWARE.
[2021-03-27] MEDS: INSULIN GLARGINE, 100 UNIT/ML CARTRIDGE SQ SCH (21:26)
[2021-03-27] MEDS: DONEPEZIL 5 MG TABLET PO SCH (22:00)
[2021-03-27] MEDS: ATORVASTATIN 10 MG TABLET PO SCH (22:00)
--- NOTE | 2021-03-27 22:10 | NUR ---
RN NOTES PATIENT IS AGITATED. INFORMED DR AHN WITH NEW ORDER OF ATIVAN 1 MG IV Q6H PRN FOR AGITATION.
[2021-03-27] MEDS ORDERED: LORAZEPAM INJ 2 MG/ML VIAL IV PRN (22:30)
[2021-03-28] VITALS (24 sets, daily range): BP systolic 97–171; BP diastolic 37–95
--- NOTE | 2021-03-28 | NUR ---
RN NOTES BS 200MG/DL. DUE REGULAR INSULIN 4 UNITS PER SLIDING SCALE GIVEN
[2021-03-28] MEDS: MEROPENEM 500 MG in IV NS 0.9% 50 ML IV SCH ×2 (00:37→13:14)
[2021-03-28] MEDS: Sodium Bicarbonate 100 MEQ in IV D5W 1,000 ML IV SCH ×3 (03:47→19:30)
[2021-03-28] MEDS: HYDROCORTISONE SOD SUCCINATE 100 MG/2 ML VIAL IV SCH ×3 (05:20→20:22)
[2021-03-28] MEDS: BLOOD SUGAR DIAGNOSTIC 1 EACH STRIP IN SCH ×4 (05:27→23:53)
[2021-03-28] MEDS: INSULIN REGULAR, HUMAN 100 UNIT/ML 3 ML VIAL SQ PRN ×3 (05:31→23:54)
--- NOTE | 2021-03-28 06:00 | NUR ---
RN NOTES BS 171 MG/DL. REGULAR INSULIN 4 UNITS PER SLIDING SCALE GIVEN
[2021-03-28 06:16] LABS: ABG BASE EXCESS -1.7 mmol/L; ABG PCO2 31.4 mmHg (35.0-45.0); ABG PH 7.454 (7.350-7.450); ABG PO2 62.5 mmHg (75.0-100.0); AaDO2 330.8 mmHg; COHb 0.6 % (0.5-1.5); MetHb 0.1 % (0.0-1.5); O2Hb 92.3 % (94.0-97.0); SITE, ABG Right Radial; VENT MODE, BG BIPAP 20/5 RR18 60%
[2021-03-28 06:17] LABS: HEMATOCRIT 27 % (39-51); HEMOGLOBIN 9.2 g/dL (13.5-17.5); LYMPHOCYTES # (AUTO) 0.5 K/uL (0.8-4.8); LYMPHOCYTES % (AUTO) 2.5 % (20.0-44.0); MEAN CORPUSCULAR HGB CONC 34 g/dl (31.0-36.0); MEAN CORPUSCULAR VOLUME 82 fL (80-96); MONOCYTES # (AUTO) 1.5 K/uL (0.1-1.30); MONOCYTES % (AUTO) 7.6 % (2.0-12.0); NEUTROPHILS # (AUTO) 17.2 K/uL (1.8-8.9); NEUTROPHILS % (AUTO) 89.9 % (43.0-81.0); PLATELET COUNT (AUTO) 264 K/uL (150-450); RED BLOOD CELL COUNT(AUTO) 3.34 MIL/uL (4.5-6.0); WHITE BLOOD COUNT (AUTO) 19.1 K/uL (4.3-11.0)
[2021-03-28 06:18] LABS: BILIRUBIN,TOTAL 0.7 mg/dL (0.2-1.0); CALCIUM, SERUM 7.3 mg/dL (8.5-10.1); CREATININE 1.6 mg/dL (0.6-1.3); MAGNESIUM 1.7 mg/dL (1.8-2.4); PHOSPHORUS 2.3 mg/dL (2.5-4.9); TOTAL PROTEIN, SERUM 4.7 g/dL (6.4-8.2)
--- NOTE | 2021-03-28 06:30 | NUR ---
RN NOTES VANCOMYCIN STILL NOT GIVEN WAITING FOR VANCO THROUG RESULT
[2021-03-28 06:44] LABS: ALBUMIN 1.4 g/dL (3.4-5.0)
--- NOTE | 2021-03-28 06:46 | NUR ---
RN NOTES PT REMAINS ON BIPAP, LETHARGIC / CONFUSED, PULLING ON HIS BIPAP , DEANNA. WRIST RESTRAINS IN PLACE FOR PT SAFETY, O2 SAT 90S' ON TELE AFIB HR IN 100'S , NAVARRETE PATENT. SR UP x3, CALL LIGHT WITHIN EASY REACH, HOB ELEVATED WILL ENDORSE TO MORNING SHIFT NURSE FOR CONTINUITY OF CARE
[2021-03-28] MEDS: VANCOMYCIN 0.75 GM in IV D5W 250 ML IV SCH (06:54)
[2021-03-28] MEDS: PANTOPRAZOLE 40 MG TABLET.DR PO SCH (07:30)
[2021-03-28] MEDS: GLUCERNA SHAKE 237 ML CAN PO SCH ×2 (07:31→16:39)
[2021-03-28] MEDS: glipiZIDE XL 10 MG TAB.OSM.24 PO SCH (07:33)
[2021-03-28] MEDS: ASPIRIN 81 MG TAB.CHEW PO SCH (07:33)
[2021-03-28] MEDS: CILOSTAZOL 100 MG TABLET PO SCH ×2 (07:34→20:38)
[2021-03-28] MEDS: AMLODIPINE BESYLATE 10 MG TABLET PO SCH (07:34)
[2021-03-28] MEDS: METOPROLOL TARTRATE 25 MG TABLET PO SCH ×2 (07:34→16:39)
[2021-03-28] MEDS: LISINOPRIL (5MG) 5 MG TABLET PO SCH (07:35)
[2021-03-28] MEDS: TACROLIMUS ANHYDROUS 0.5 MG CAPSULE PO SCH ×2 (07:35→16:39)
[2021-03-28] MEDS: LINAGLIPTIN 5 MG TABLET PO SCH (07:35)
[2021-03-28] MEDS: DORZOLAMIDE OPTH 2% 10 ML BOTTLE EACHEYE SCH ×2 (08:50→18:02)
[2021-03-28] MEDS: BRIMONIDINE TARTRATE OPHT SOLN 5 ML BOTTLE OP SCH ×3 (08:50→18:02)
[2021-03-28] MEDS ORDERED: Magnesium 1GM/D5W 100ML PREMIX 100 ML IV SCH (09:00)
[2021-03-28] MEDS: MORPHINE SULFATE INJ 2 MG/ML DISP.SYRIN IV PRN ×2 (09:04→12:15)
[2021-03-28] MEDS: POTASSIUM CL. PREMIX PERIPHER. 50 ML IV SCH ×5 (09:58→16:14)
[2021-03-28] MEDS ORDERED: Sodium Phosphate 15 MMOL in IV NS 0.9% 245 ML IV SCH (11:00)
[2021-03-28] MEDS: IV NS 0.9% 250 ML IV PRN (11:24)
[2021-03-28] MEDS: MICAFUNGIN SODIUM 100 MG in IV NS 0.9% 100 ML IV SCH (14:07)
--- NOTE | 2021-03-28 16:37 | NUR ---
RIGHT THORACENTESIS COMPLETED PER MD ORDERS, 1500 ML OF BLOODY FLUID RETURNED. 2 BOTTLES OF FLUID BROUGHT TO LAB BY RN FOR LAB PROCESSING.
--- NOTE | 2021-03-28 18:35 | NUR ---
END OF SHIFT NOTE: PT HAD A FAIRLY UNEVENTFUL DAY. RIGHT THORACENTESIS DONE PER MD ORDERS. PT'S SISTER AND NIECE CAME AND VISITED PATIENT. PT STAYED ON BIPAP ALL DAY 03/07 AT 70%. 50MEQ POTASSIUM, 1GM MAG AND SODIUM PHOSPHATE GIVEN PER MD ORDERS. PT CHECKED ON HOURLY AND PRN BY NURSING STAFF.
--- NOTE | 2021-03-28 20:19 | NUR ---
RT NOTE FIO2 INCREASED FROM 70% TO 80% DUE TO DESATURATION. RN NOTIFIED AND AWARE.
[2021-03-28] MEDS: DONEPEZIL 5 MG TABLET PO SCH (22:00)
[2021-03-28] MEDS: ATORVASTATIN 10 MG TABLET PO SCH (22:00)
--- NOTE | 2021-03-28 22:28 | NUR ---
PO MEDICATION NOTE GIVEN DUE TO PT IS VERY LETHARGIC AND VERY HIGH RISK FOR ASPIRATION HOSPITALIST ONCALL MADE AWARE
[2021-03-28] MEDS: INSULIN GLARGINE, 100 UNIT/ML CARTRIDGE SQ SCH (23:00)
[2021-03-29] VITALS (40 sets, daily range): BP systolic 52–201; BP diastolic 33–93
[2021-03-29] MEDS: MORPHINE SULFATE INJ 2 MG/ML DISP.SYRIN IV PRN (00:54)
[2021-03-29] MEDS: MEROPENEM 500 MG in IV NS 0.9% 50 ML IV SCH ×2 (01:54→12:06)
[2021-03-29] MEDS: Sodium Bicarbonate 100 MEQ in IV D5W 1,000 ML IV SCH ×3 (03:31→19:19)
[2021-03-29] MEDS: HYDROCORTISONE SOD SUCCINATE 100 MG/2 ML VIAL IV SCH ×3 (05:13→21:49)
[2021-03-29] MEDS: VANCOMYCIN 0.75 GM in IV D5W 250 ML IV SCH (05:13)
[2021-03-29] MEDS: BLOOD SUGAR DIAGNOSTIC 1 EACH STRIP IN SCH ×3 (05:30→19:14)
[2021-03-29] MEDS: INSULIN REGULAR, HUMAN 100 UNIT/ML 3 ML VIAL SQ PRN ×2 (05:31→12:15)
[2021-03-29 06:03] LABS: CALCIUM, SERUM 7.3 mg/dL (8.5-10.1); CREATININE 1.5 mg/dL (0.6-1.3); MAGNESIUM 1.9 mg/dL (1.8-2.4); PHOSPHORUS 3.1 mg/dL (2.5-4.9); POTASSIUM 3.8 mmol/L (3.5-5.1)
--- NOTE | 2021-03-29 07:37 | NUR ---
PT IS ON BED STILL LETHARGIC BUT MORE AWAKE THAN LAST NIGHT STILL ON BIPAP WITH FIO2 70% SPO2 97% NO SOB NOTED, STILL MOANING AND LITTLE AGITATED, SYTILL WITH BILATERAL WRIST SOFT RESTRAINTS, AFIB 90-100 ON TELE MONITOR STILL ON NaHCO3 @ 125ML/HR INFUSING VIA BLACK PICC LINE, BED ON LOWEST POSITION AND LOCKED SIDE RAILS UP X2 WILL CON TO MONITOR
[2021-03-29] MEDS: GLUCERNA SHAKE 237 ML CAN PO SCH ×2 (08:00→17:00)
--- NOTE | 2021-03-29 08:00 | NUR ---
RN NOTES RECEIVED PATIENT ON BIPAP WITH FIO2 70% SPO2 97% NO SOB NOTED, PATIENT MOANING AND CONFUSED, WITH BILATERAL WRIST SOFT RESTRAINTS CHECKED CIRCULATION. AFIB -110 SHOWS ON BEDSIDE TELE MONITOR . PICC LINE ON RIGHT UA INTACT INFUSING NaHCO3 @ 125ML/HR . PATIENT NPO, EXCEPT MEDS, DUE MEDICATION ADMINISTERED, BS-178 MG/DL. NAVRARETE DRAINING VIA GRAVITY. BED ON LOWEST POSITION AND LOCKED SIDE RAILS UP X2 WILL CON TO MONITOR.
[2021-03-29] MEDS: LISINOPRIL (5MG) 5 MG TABLET PO SCH (09:25)
[2021-03-29] MEDS: TACROLIMUS ANHYDROUS 0.5 MG CAPSULE PO SCH ×2 (09:25→17:00)
[2021-03-29] MEDS: CILOSTAZOL 100 MG TABLET PO SCH ×2 (09:25→21:00)
[2021-03-29] MEDS: glipiZIDE XL 10 MG TAB.OSM.24 PO SCH (09:26)
[2021-03-29] MEDS: AMLODIPINE BESYLATE 10 MG TABLET PO SCH (09:26)
[2021-03-29] MEDS: METOPROLOL TARTRATE 25 MG TABLET PO SCH ×2 (09:27→17:00)
[2021-03-29] MEDS: ASPIRIN 81 MG TAB.CHEW PO SCH (09:27)
[2021-03-29] MEDS: LINAGLIPTIN 5 MG TABLET PO SCH (09:27)
[2021-03-29] MEDS: BRIMONIDINE TARTRATE OPHT SOLN 5 ML BOTTLE OP SCH ×3 (09:29→17:00)
[2021-03-29] MEDS: DORZOLAMIDE OPTH 2% 10 ML BOTTLE EACHEYE SCH ×2 (09:29→17:00)
[2021-03-29] MEDS: PANTOPRAZOLE 40 MG TABLET.DR PO SCH (09:31)
[2021-03-29] MEDS: MICAFUNGIN SODIUM 100 MG in IV NS 0.9% 100 ML IV SCH (13:31)
--- NOTE | 2021-03-29 13:53 | NUR ---
rn notes get new TO order Dilaudid 1mg/ml iv push q4hr, and d/c morphine sulfate. order taken and carried out.
[2021-03-29] MEDS: HYDROMORPHONE 1 MG/1 ML DISP.SYRIN IV PRN ×2 (13:59→19:19)
--- NOTE | 2021-03-29 13:59 | NUR ---
rn notes administered Dilaudid 1mg/ml iv push for generalized pain unable to assess. per md order, bp- 115/50,p- 100. will follow up.
--- NOTE | 2021-03-29 19:19 | NUR ---
rn notes administer Dilaudid generalized pain 1 mg/ml iv push for generalized pain, held due medication, bs-131mg/dl, assist turn and reposition q2 hr. patient still on bipap. seen oncologist Dr Bull , no new order, infusing Nabicarb @125ml/hr ., and tko. Ensorsed oncoming nurse heather.
--- NOTE | 2021-03-29 19:48 | NUR ---
RN OPENING NOTES RECEIVED PATIENT ON BIPAP WITH FIO2 70% SPO2 90% NO SOB NOTED, PATIENT MOANING AND CONFUSED, WITH BILATERAL WRIST SOFT RESTRAINTS CHECKED CIRCULATION. PATIENT IS A/O X 1-2. 87HR SHOWS ON BEDSIDE TELE MONITOR . PICC LINE ON RIGHT UA INTACT INFUSING NaHCO3 @ 125ML/HR . PATIENT NPO, . NAVARRETE DRAINING VIA GRAVITY. BED ON LOWEST POSITION AND LOCKED SIDE RAILS UP X2 WILL CONTINUE TO MONITOR PATIENT THROUGHOUT THE SHIFT.
--- NOTE | 2021-03-29 21:58 | NUR ---
RN NOTES PATENT LETHARGIC HIGH RISK ASPIRATION, PO MEDS HELD.
[2021-03-29] MEDS: ATORVASTATIN 10 MG TABLET PO SCH (22:00)
[2021-03-29] MEDS: DONEPEZIL 5 MG TABLET PO SCH (22:00)
[2021-03-29] MEDS: INSULIN GLARGINE, 100 UNIT/ML CARTRIDGE SQ SCH (22:55)
[2021-03-30] VITALS (19 sets, daily range): BP systolic 0–155; BP diastolic 0–89
[2021-03-30] MEDS: INSULIN REGULAR, HUMAN 100 UNIT/ML 3 ML VIAL SQ PRN (01:36)
[2021-03-30] MEDS: MEROPENEM 500 MG in IV NS 0.9% 50 ML IV SCH ×2 (01:38→12:56)
[2021-03-30 04:24] LABS: BASOPHILS % (AUTO) 0.1 % (0.0-2.0); HEMATOCRIT 30 % (39-51); HEMOGLOBIN 9.9 g/dL (13.5-17.5); LYMPHOCYTES # (AUTO) 0.4 K/uL (0.8-4.8); LYMPHOCYTES % (AUTO) 1.9 % (20.0-44.0); MEAN CORPUSCULAR HGB CONC 33 g/dl (31.0-36.0); MEAN CORPUSCULAR VOLUME 83 fL (80-96); MONOCYTES # (AUTO) 1.3 K/uL (0.1-1.30); MONOCYTES % (AUTO) 5.8 % (2.0-12.0); NEUTROPHILS # (AUTO) 20.6 K/uL (1.8-8.9); NEUTROPHILS % (AUTO) 92.2 % (43.0-81.0); PLATELET COUNT (AUTO) 286 K/uL (150-450); RED BLOOD CELL COUNT(AUTO) 3.66 MIL/uL (4.5-6.0); WHITE BLOOD COUNT (AUTO) 22.3 K/uL (4.3-11.0)
[2021-03-30 04:34] LABS: CALCIUM, SERUM 7.3 mg/dL (8.5-10.1); CREATININE 1.6 mg/dL (0.6-1.3); MAGNESIUM 1.9 mg/dL (1.8-2.4); PHOSPHORUS 2.7 mg/dL (2.5-4.9); POTASSIUM 3.3 mmol/L (3.5-5.1)
[2021-03-30] MEDS: Sodium Bicarbonate 100 MEQ in IV D5W 1,000 ML IV SCH ×2 (04:40→09:00)
[2021-03-30] MEDS: HYDROCORTISONE SOD SUCCINATE 100 MG/2 ML VIAL IV SCH ×2 (04:51→12:53)
[2021-03-30] MEDS: VANCOMYCIN 0.75 GM in IV D5W 250 ML IV SCH (04:51)
--- NOTE | 2021-03-30 05:00 | NUR ---
CLARIFIER OPERATOR HELPER NOTE ASSUMED CARE FOR THE PT FROM CHARGE NURSE KRUNAL. PT IN BED ASLEEP AND REMAIN ON BIPAP. NO DISTRESS NOTED.
[2021-03-30] MEDS: BLOOD SUGAR DIAGNOSTIC 1 EACH STRIP IN SCH ×4 (05:11→18:00)
--- NOTE | 2021-03-30 06:37 | NUR ---
PACKAGE WINDER NOTE PT IN BED AWAKE. NO DISTRESS OR DISCOMFORT NOTED. NO S/S OF PAIN NOTED. SODIUM BICARB INFUSING WELL. NO S/S OF INFILTRATION NOTED. SIDE RAILS UP X 3 AND CALL LIGHT WITHIN REACH. VSS. WILL ENDORSE TO DAY SHIFT NURSE FOR CONTINUE TO CARE.
[2021-03-30] MEDS: PANTOPRAZOLE 40 MG TABLET.DR PO SCH (07:40)
--- NOTE | 2021-03-30 07:44 | NUR ---
RN NOTE AM RECEIVED PT IN BED AWAKE, RESTLESS, RESTRAINTS INPLACE, CHECKED SKIN, HELD AM PO MEDICATION OF PROTONIX DUE TO NPO ORDER AND PT COUGHING, NO DISTRESS OR DISCOMFORT NOTED. SODIUM BICARB IS INFUSING WELL. NO S/S OF INFILTRATION NOTED. SIDE RAILS UP X 3 AND CALL LIGHT WITHIN REACH. VS TAKEN, OXYGEN AT 91% BI PAP INTACT IN PLACE, BED LOW TO FLOOR, WHEELS LOCKED,
[2021-03-30] MEDS: GLUCERNA SHAKE 237 ML CAN PO SCH ×2 (07:47→17:00)
[2021-03-30] MEDS: TACROLIMUS ANHYDROUS 0.5 MG CAPSULE PO SCH ×2 (09:00→17:00)
[2021-03-30] MEDS: ASPIRIN 81 MG TAB.CHEW PO SCH (09:00)
[2021-03-30] MEDS: LINAGLIPTIN 5 MG TABLET PO SCH (09:00)
[2021-03-30] MEDS: CILOSTAZOL 100 MG TABLET PO SCH (09:00)
[2021-03-30] MEDS: AMLODIPINE BESYLATE 10 MG TABLET PO SCH (09:00)
[2021-03-30] MEDS: METOPROLOL TARTRATE 25 MG TABLET PO SCH ×2 (09:00→17:00)
[2021-03-30] MEDS: glipiZIDE XL 10 MG TAB.OSM.24 PO SCH (09:00)
[2021-03-30] MEDS: LISINOPRIL (5MG) 5 MG TABLET PO SCH (09:00)
[2021-03-30 09:06] LABS: ABG BASE EXCESS 11.4 mmol/L; ABG OXYGEN SATURATION 92.6 % (92.0-98.5); ABG PCO2 37.4 mmHg (35.0-45.0); ABG PH 7.578 (7.350-7.450); ABG PO2 61.1 mmHg (75.0-100.0); AaDO2 397.8 mmHg; COHb 0.1 % (0.5-1.5); MetHb 0.1 % (0.0-1.5); O2Hb 92.4 % (94.0-97.0); SITE, ABG Left Radial; VENT MODE, BG ST 20/5 R 18 70%
[2021-03-30] MEDS: DORZOLAMIDE OPTH 2% 10 ML BOTTLE EACHEYE SCH ×2 (09:33→17:00)
[2021-03-30] MEDS: BRIMONIDINE TARTRATE OPHT SOLN 5 ML BOTTLE OP SCH ×3 (09:33→17:00)
[2021-03-30] MEDS: POTASSIUM CL. PREMIX PERIPHER. 50 ML IV SCH ×2 (09:39→10:35)
--- NOTE | 2021-03-30 10:56 | NUR ---
RN NOTES RT PLACED PT ON NC TO OBSERVE IF PT CAN TOLERATE WITHOUT THE BI-PAP, PT WAS UNABLE TO MAINTAIN AT 92% OR ABOVE FOR O2 LEVELS AND NOTIFIED, WE HAVE PLACE PT BACK ON THE BI-PAP DEVICE AND MAINTAINING BETWEEN 91-93% AT THIS TIME, WILL CONTINUE TO MONITOR CLOSELY, JOHNY SITES ARE INTACT, PATENT AND FLUSHING WELL, PT PULLED UP TO HIGH MANN POSITION IN BED AND MADE COMFORTABLE, RESTAINTS OFF AND SKIN CHECKED PULSE CHECKS CHECKED ALL IS INTACT AND IN GOOD CONDITION, RESTRAINTS PLACED BACK ON FOR SAFETY PT WILL PULL OUT IV AND PULL OFF FACE MASK, PT IS RESTLESS, MOANING BUT STATING "NO PAIN": AT THIS TIME. WILL CONTINUE TO MONITOR.
[2021-03-30] MEDS: HYDROMORPHONE 1 MG/1 ML DISP.SYRIN IV PRN (12:13)
[2021-03-30] MEDS: MICAFUNGIN SODIUM 100 MG in IV NS 0.9% 100 ML IV SCH (13:48)
--- NOTE | 2021-03-30 15:32 | NUR ---
PATIENT IS UNABLE TO MAINTAIN NORMAL SAFE OXYGEN LEVEL WITHOUT BI-PAP, RT REMOVED BI-PAP TO ASSESS ABILLITY TO BREATH WITH NC BUT UNABLE TO CONTINUE TO MAINTAIN 92% OR HIGHER AT THIS TIME, VS ARE CONTINUING TO DECREASE AT THIS TIME, BS TAKEN IT IS AT 62. PATIENT MADE COMFORTABLE PAIN MEDICATION OF DILAUDID GIVEN PER ORDER IV , PATIENT PEACEFULLY LOOSING SIGNS OF LIFE AT THIS TIME HE IS A DNA, DNR.
--- NOTE | 2021-03-30 15:43 | NUR ---
RN NOTES FAMILY NOTIFIED DAUGHTER "CALLUM" WAS [facility] AND WILL CALL BACK HOSPITAL AND ASK FOR [facility] ONCE SHE RETURNS HOME TO NOTIFIY OF STATUS.
--- NOTE | 2021-03-30 15:48 | NUR ---
RN NOTE PT DNR/DNI STATUS. FOUND PT APNEIC, ASYSTOLIC, AREFLEXIVE. PRONOUNCED AT 1548. FAMILY NOTIFIED BY PHONE.
--- NOTE | 2021-03-30 15:53 | NUR ---
RN NOTES PATIENT HAS A NEGATIVE RESULT ON THE ACID FAST SMEAR, REPORTED FROM LAB AT 1554 PM 03/30/2021, NOTED.
--- NOTE | 2021-03-30 16:30 | NUR ---
RN NOTES [id number] PT , FAMILY NOTIFIED, AUNT AND DAUGHTER WILL BE HERE SHORTLY TO SAY GOOD BYPATRICIA , BOTTOM LINER, NIECE ADVISED VIA TELEPHONE.
[2021-03-30] MEDS ORDERED: HYDROCORTISONE SOD SUCCINATE 100 MG/2 ML VIAL IV SCH (17:00)
--- NOTE | 2021-03-30 18:29 | NUR ---
RN NOTES I WAS TRANSFERRED TO [facility] TO CARE FOR OTHER PATIENTS, FAMILY INFORMED OF VIA TELEPHONE AND STATED THEY WOULD BE UP TO VISIT WITHIN THE HOUR BUT THEY DID NOT MAKE IT WITHIN THE HOUR, ALL INFO ENDORSED TO SHIFT NURSES AND RN JEWEL HOLE DRILLER TO PROVIDE INFORMATION TO FAMILY UPON ARRIVAL, DOCUMENTS AND PAPER FILLED OUT, IV REMOVED FROM HAND, TOE TAG PLACED ON PROPER TOE, BODY CLEANED, F/C REMOVED, PICC LINE IV STILL INTACT WILL ENDORSE TO SHIFT NURSE TO D/C.
== END 2021-03-30 19:58 | DRG 871 ==
LOC: ER 10:12 → TELE 14:42 → ICU 03-26 14:07
PROVIDERS: ADMIT Registered Nurse; ATTEND Nurse Practitioner Acute Care
PROC: 0FB13ZX Excision of Right Lobe Liver, Percutaneous Approach, Diagnostic (ICD-10-PCS; principal; 2021-03-24)
PROC: 02HV33Z Insertion of Infusion Device into Superior Vena Cava, Percutaneous Approach (ICD-10-PCS; 2021-03-26)
PROC: B548ZZA Ultrasonography of Superior Vena Cava, Guidance (ICD-10-PCS; 2021-03-26)
PROC: 5A09557 Assistance with Respiratory Ventilation, Greater than 96 Consecutive Hours, Continuous Positive Airway Pressure (ICD-10-PCS; 2021-03-26)
PROC: 0W993ZZ Drainage of Right Pleural Cavity, Percutaneous Approach (ICD-10-PCS; 2021-03-29)
DX: A41.9 Sepsis, unspecified organism (principal); J18.9 Pneumonia, unspecified organism; J96.01 Acute respiratory failure with hypoxia; J96.02 Acute respiratory failure with hypercapnia; R65.21 Severe sepsis with septic shock; N39.0 Urinary tract infection, site not specified; I82.412 Acute embolism and thrombosis of left femoral vein; E87.2 Acidosis; C78.02 Secondary malignant neoplasm of left lung; C78.01 Secondary malignant neoplasm of right lung; J90 Pleural effusion, not elsewhere classified; C22.1 Intrahepatic bile duct carcinoma; Z94.0 Kidney transplant status; I25.10 Atherosclerotic heart disease of native coronary artery without angina pectoris; Z20.822 Contact with and (suspected) exposure to COVID-19; E87.6 Hypokalemia; E83.42 Hypomagnesemia; Z86.73 Personal history of transient ischemic attack (TIA), and cerebral infarction without residual deficits; Z95.1 Presence of aortocoronary bypass graft; Z66 Do not resuscitate; N18.9 Chronic kidney disease, unspecified; Y92.009 Unspecified place in unspecified non-institutional (private) residence as the place of occurrence of the external cause; E66.9 Obesity, unspecified; Z68.25 Body mass index [BMI] 25.0-25.9, adult; Z79.899 Other long term (current) drug therapy; W18.30XA Fall on same level, unspecified, initial encounter; K74.60 Unspecified cirrhosis of liver; Y93.9 Activity, unspecified; K29.70 Gastritis, unspecified, without bleeding; K20.90 Esophagitis, unspecified without bleeding; R91.8 Other nonspecific abnormal finding of lung field; R59.0 Localized enlarged lymph nodes; I34.0 Nonrheumatic mitral (valve) insufficiency; R93.1 Abnormal findings on diagnostic imaging of heart and coronary circulation; E78.5 Hyperlipidemia, unspecified; D64.9 Anemia, unspecified; R65.20 Severe sepsis without septic shock; Z79.4 Long term (current) use of insulin; Z79.84 Long term (current) use of oral hypoglycemic drugs; Y83.8 Other surgical procedures as the cause of abnormal reaction of the patient, or of later complication, without mention of misadventure at the time of the procedure; E11.9 Type 2 diabetes mellitus without complications; I10 Essential (primary) hypertension
CPT/HCPCS: 31720; 36415; 36600; 70450-TC; 71045-TC; 71250-TC; 71260-TC; 72125-TC; 80048-TC; 80053-TC; 80061-TC; 80076-TC; 80202-TC; 82010-TC; 82105; 82247-TC; 82248-TC; 82378; 82533; 82728-TC; 82784; 82803-TC; 82962-TC; 83540-TC; 83605-TC; 83615-TC; 83735-TC; 84100-TC; 84153-TC; 84154-TC; 84155; 84155-TC; 84165; 84443-TC; 84484-TC; 85025-TC; 85610-TC; 85730-TC; 86301; 86334; 86480; 86644; 86645; 87040-TC; 87070-TC; 87075-TC; 87081-TC; 87102-TC; 87116; 87206; 87899; 88108-TC; 88305-TC; 88333-TC; 89051-TC; 93307-TC; 93880-TC; 93970-TC; 94660; 94760-TC; 94799-TC; 97112-TC; 97116-TC; 97530-TC; A9563; C9803; G0378; J0692; J1170; J1644; J1650; J1720; J1815; J2060; J2185; J2248; J2270; J2543; J3370; J3475; J3480; J3490; J7030; J7040; J7050; J7060; J7070; J7507; J7517; Q9967